=== PATIENT | male | born 1975 | race Caucasian/White ===

== ENCOUNTER 2016-08-25 18:03 | Emergency (ER) | payer OTHER ==
[2016-08-25 18:11] VITALS: TEMP 98.2
[2016-08-25] MEDS ORDERED: NS 1,000 ML IV ONE ×2 (18:19→19:13)
--- NOTE | 2016-08-25 18:33 | CPEKG ---
Heart Rate: 91 RR Interval: 659 P-R Interval: 136 QRSD Interval: 90 QT Interval: 376 QTC Interval: 463 P Tracy: 7 QRS Tracy: -17 T Wave Tracy: 12 EKG Severity - OTHERWISE NORMAL ECG - EKG Impression: SINUS RHYTHM EKG Impression: BORDERLINE LEFT AXIS DEVIATION Electronically Signed By: Kitty Dasilva 25-Aug-2016 20:48:31
[2016-08-25 18:58] LABS: % IMMATURE GRANULYOCYTES 0.2 % (0.0-1.1); ABSOLUTE IMMATURE GRANULOCYTES 0.01 10^3/uL (0.00-0.10); ADD DIFF? NO; ADD MORPH? NO; ADD SCAN? NO; ATYPICAL LYMPHOCYTE FLAG 0 (0-99); FRAGMENT RBC FLAG 0 (0-99); HEMATOCRIT 49.3 % (40.0-51.0); HEMOGLOBIN 17.3 g/dL (13.7-17.5); LEFT SHIFT FLG 0 (0-99); LIPEMIA HEMOLYSIS FLAG 90 (0-99); MEAN CELL HEMOGLOBIN 29.2 pg (27.9-34.1); MEAN CELL HEMOGLOBIN CONCENTR. 35.1 g/dL (32.4-36.7); MEAN CELL VOLUME 83.3 fL (81.5-99.8); MEAN PLATELET VOLUME 9.3 fL (8.7-11.7); PLATELET CLUMPS FLAG 0 (0-99); PLATELET COUNT 195 10^3/uL (150-400); RED BLOOD CELL COUNT 5.92 10^6/uL (4.40-6.38)
--- NOTE | 2016-08-25 19:08 | UCPHY ---
H & P Time Seen by Provider: 08/25/16 18:20 Patient Type: Established HPI/ROS: CHIEF COMPLAINT: Extremity cramping and tingling HISTORY OF PRESENT ILLNESS: 41-year-old male presents with extremity cramping and tingling. He recently was on an alcohol binge and drank 24 beers daily for 5 days. Yesterday, he started drinking and he began vomiting. At midnight last night, he awoke with a panicky feeling, associated with bilateral hand cramping and tingling of all of his extremities. He was unable sleep well last night because he kept waking up with cramping and tingling. Today the cramping has resolved, but he continues to have tingling of his upper extremities. He has been tolerating Pedialyte today. No nausea or vomiting now. REVIEW OF SYSTEMS: Constitutional: No fever, no chills Eyes: No visual changes ENT: No sore throat Respiratory: No cough, no shortness of breath Cardiac: No chest pain Gastrointestinal: no abdominal pain Genitourinary: No hematuria, no dysuria Musculoskeletal: No leg pain or swelling Skin: No rash Neurological: No headache Psychiatric: Anxiety Past Medical/Surgical History: Denies Social History: PCP: Dr. Gill Smoking Status: Never smoked Physical Exam: General Appearance: Alert, pleasant Eyes: Pupils equal and round, no conjunctival pallor ENT, Mouth: Mucous membranes moist Neck: Normal inspection Respiratory: Lungs are clear to auscultation Cardiovascular: Regular rate and rhythm Gastrointestinal: Abdomen is soft and nontender Neurological: A&O, nonfocal, no tremor, normal gait Skin: Warm and dry Extremities: normal inspection Psychiatric: Mood and affect normal Constitutional: Initial Vital Signs Temperature (C) 36.8 C 08/25/16 18:09 Heart Rate 100 08/25/16 18:09 Respiratory Rate 18 08/25/16 18:09 Blood Pressure 135/89 H 08/25/16 18:09 O2 Sat (%) 95 08/25/16 18:09 O2 Delivery Mode Room Air Allergies/Adverse Reactions: No Known Allergies Allergy (Verified 08/26/16 13:45) Home Medications: Medication Instructions Recorded LORazepam [Ativan] 1 mg PO Q6-8PRN PRN #10 tab 08/26/16 Medical Decision Making - Diagnostics EKG Interpretation: EKG interpreted by me reveals normal sinus rhythm, rate 91, no ST or T segment changes. ED Course/Re-evaluation: This patient presents with carpal pedal spasms, likely secondary to dehydration and possibly electrolyte abnormality. IV normal saline given for rehydration. CBC and Chem 7 ordered. Chem 7 reveals an anion gap. The laboratory here is unable to perform a venous pH or ABG. I suspect that the anion gap is secondary to dehydration or mild alcoholic ketoacidosis. The patient specifically denies use of methanol, ethylene glycol, aspirin, prescription meds. Tolerating oral fluids well. I will give him 2 L of normal saline and then recheck a Chem 7. Ativan 1 mg IV given for anxiety. Feels much better after 2 L of normal saline. Repeat Chem 7 is improved. He still has an anion gap of 19, but given that he is now asymptomatic, I feel that he is safe and stable for discharge and does not require further IV fluids. He is able to tolerate oral fluids and is aware that he should drink plenty of fluids. Repeat calcium is low, likely secondary to IV hydration. He will increase his calcium intake over the next few days. Differential Diagnosis: Differential diagnosis includes does not limited to hypokalemia, hypotension, metabolic acidosis secondary to methanol and ethylene glycol, aspirin overdose, uremia. - Data Points Laboratory Results: Laboratory Results 08/25/16 18:55 08/25/16 20:40 Medications Given: Discontinued Medications Sodium Chloride (Ns) 1,000 mls @ 0 mls/hr IV ONCE ONE PRN Reason: Wide Open Stop: 08/25/16 18:20 Last Admin: 08/25/16 18:32 Dose: 1,000 mls Sodium Chloride (Ns) 1,000 mls @ 0 mls/hr IV ONCE ONE PRN Reason: Wide Open Stop: 08/25/16 19:14 Last Admin: 08/25/16 19:17 Dose: 1,000 mls Lorazepam (Ativan Injection) 1 mg IVP EDNOW ONE Stop: 08/25/16 20:09 Last Admin: 08/25/16 20:19 Dose: 1 mg Departure - Departure Disposition: Home, Routine, Self-Care Clinical Impression: Carpopedal spasm, Dehydration Condition: Good Instructions: Dehydration (ED), Carpopedal Spasm (ED) Additional Instructions: Drink plenty of fluids. Take a multivitamin with calcium once daily. Return for worsening symptoms or any concerns. Referrals: NANDINI DENNY [Primary Care Provider] - As per Instructions - PQRS PQRS Measurement: N/A
[2016-08-25 19:10] LABS: ANION GAP 25 mEq/L (8-16); CALCIUM 9.1 mg/dL (8.5-10.4); CARBON DIOXIDE 23 mEq/l (22-31); CHLORIDE 100 mEq/L (97-110); CREATININE 0.7 mg/dL (0.7-1.3); GLOMERULAR FILTRATION RATE > 60; GLUCOSE 134 mg/dL (70-100); POTASSIUM 3.8 mEq/L (3.5-5.2); SODIUM 148 mEq/L (134-144)
[2016-08-25] MEDS ORDERED: LORazepam 2 MG/ML INJ IVP ONE (20:08)
[2016-08-25 20:57] LABS: ANION GAP 19 mEq/L (8-16); CALCIUM 7.7 mg/dL (8.5-10.4); CARBON DIOXIDE 23 mEq/l (22-31); CHLORIDE 105 mEq/L (97-110); CREATININE 0.7 mg/dL (0.7-1.3); GLOMERULAR FILTRATION RATE > 60; GLUCOSE 138 mg/dL (70-100); MAGNESIUM 1.8 mg/dL (1.6-2.3); SODIUM 147 mEq/L (134-144)
[2016-08-25 21:15] VITALS: RESP 16
[2016-08-25 21:41] VITALS: BP 122/89; PULSE 85; O2SAT 95
== END 2016-08-25 21:25 | disposition home or self-care (01) ==
LOC: CED 18:03
DX: R29.0 Tetany (principal); E86.0 Dehydration
CPT/HCPCS: 80048-PO; 83735-PO; 85025-PO; 96360-PO; 96361-PO; 96374-PO; G0463-PO; J2060

== ENCOUNTER 2016-08-26 13:26 | Emergency (ER) | payer OTHER ==
[2016-08-26 13:48] VITALS: RESP 16; TEMP 99
[2016-08-26] MEDS ORDERED: NS 1,000 ML IV ONE ×2 (14:07→14:30)
--- NOTE | 2016-08-26 14:30 | UCPHY ---
H & P Patient Type: Established Smoking Status: Never smoked Time Seen by Provider: 08/26/16 14:27 HPI/ROS: Chief complaint. Vomiting HPI. 41-year-old male seen last in night in the urgent care for vomiting and carpopedal spasm. He quit drinking 2 years ago but his daughter turn 3 this week and there was a lot of family at their house and so he had 3-4 beers each day plus shot for 3 days. Last drink was . Vomiting began yesterday and abdominal cramping. He also noted spasm of both hands especially when he was vomiting. He was treated last night with fluids and Ativan. His chemistry panel showed an anion gap. He denied drinking methanol or other alcohols. Some of his cramping today goes through to his back. No diarrhea. Decreased p.o. intake. He had hypertension when he was drinking but since he has not been drinking he and his physician of agreed that he does not probably need to take blood pressure medication. ROS Constitutional. no fever/chills, no weakness Eyes. no problems with vision ENT. no sore throat, no nasal drainage Cardiovascular. no chest pain Respiratory. no shortness of breath, no cough Abdominal. Abdominal pain with nausea vomiting . no problems urinating MS. Carpal pedal spasm of hands Skin. no rash Lymph. no swollen glands Neuro. no headache, no dizziness, no difficulty walking or with speech (Bandar Ann) Past Medical/Surgical History: Hypertension, anxiety (Bandar Ann) Social History: , nonsmoker, no alcohol for the last several days (Bandar Ann) Physical Exam: General Appearance: Alert well-developed male vital signs show heart rate 99 in blood pressure 158/113 Eyes: Pupils equal and round no pallor or injection. ENT, Mouth: Mucous membranes are moist. Respiratory: There are no retractions, lungs are clear to auscultation. Cardiovascular: Regular rate and rhythm. Gastrointestinal: Abdomen is soft with mild shan umbilical tenderness. No masses. Normal bowel sounds Neurological: Awake and alert, sensory and motor exams grossly normal. Skin: Warm and dry, no rashes. Musculoskeletal: Neck is supple nontender. Extremities symmetrical, full range of motion. Psychiatric: Patient is oriented X 3, there is no agitation. (Bandar Ann) Constitutional: Initial Vital Signs Temperature (C) 37.2 C 08/26/16 13:35 Heart Rate 99 08/26/16 13:35 Respiratory Rate 16 08/26/16 13:35 Blood Pressure 158/113 H 08/26/16 13:35 O2 Sat (%) 95 08/26/16 13:35 O2 Delivery Mode Room Air Allergies/Adverse Reactions: No Known Allergies Allergy (Verified 08/26/16 13:45) Home Medications: Medication Instructions Recorded LORazepam [Ativan] 1 mg PO Q6-8PRN PRN #10 tab 08/26/16 Medical Decision Making Procedures: IV normal saline with target of 2 L. Zofran and Ativan IV (Bandar Ann) ED Course/Re-evaluation: Re-evaluation at 3:30 p.m. patient is feeling much better. He has had 1 L of saline. He is taking oral fluids. Again denies any isopropyl or methanol. We will run the 2nd L of fluid in and let him continue to take oral fluids. We will then repeat Chem 7. If the anion gap is better he will be discharged encouraged to follow up with his regular physician (Bandar Ann) Repeat Chem 7 reveals resolution of the anion gap. Patient is treated with Reglan and Benadryl and another mg of Ativan for ongoing nausea with improvement thereafter. (Juan A Dia) Differential Diagnosis: Vomiting after alcohol. Denies is isopropyl or methanol. Elevated anion gap the last evening that improved with fluids. Elevated anion gap today after going home and vomiting. I assume it will improve again. (Bandar Ann) Care Turn Over: Dr. Dia at 3:45 p.m. (Bandar Ann) - Data Points Laboratory Results: Laboratory Results 08/26/16 14:05 08/26/16 17:55 08/26/16 08/26/16 08/26/16 17:55 14:05 14:05 WBC 6.98 10^3/uL 10^3/uL (3.80-9.50) RBC 5.80 10^6/uL 10^6/uL (4.40-6.38) Hgb 16.9 g/dL g/dL (13.7-17.5) Hct 48.8 % % (40.0-51.0) MCV 84.1 fL fL (81.5-99.8) MCH 29.1 pg pg (27.9-34.1) MCHC 34.6 g/dL g/dL (32.4-36.7) RDW 12.9 % % (11.5-15.2) Plt Count 184 10^3/uL 10^3/uL (150-400) MPV 9.6 fL fL (8.7-11.7) Neut % (Auto) 74.8 % H % (39.3-74.2) Lymph % (Auto) 20.1 % % (15.0-45.0) [place] % (Auto) 4.0 % L % (4.5-13.0) Eos % (Auto) 0.1 % L % (0.6-7.6) Baso % (Auto) 0.6 % % (0.3-1.7) Nucleat RBC Rel Count 0.0 % % (0.0-0.2) Absolute Neuts (auto) 5.22 10^3/uL 10^3/uL (1.70-6.50) Absolute Lymphs (auto) 1.40 10^3/uL 10^3/uL (1.00-3.00) Absolute Monos (auto) 0.28 10^3/uL L 10^3/uL (0.30-0.80) Absolute Eos (auto) 0.01 10^3/uL L 10^3/uL (0.03-0.40) Absolute Basos (auto) 0.04 10^3/uL 10^3/uL (0.02-0.10) Absolute Nucleated RBC 0.00 10^3/uL 10^3/uL (0-0.01) Immature Gran % 0.4 % % (0.0-1.1) Immature Gran # 0.03 10^3/uL 10^3/uL (0.00-0.10) Sodium 140 mEq/L mEq/L 141 mEq/L mEq/L (134-144) (134-144) Potassium 3.4 mEq/L L mEq/L 4.1 mEq/L mEq/L (3.5-5.2) (3.5-5.2) Chloride 104 mEq/L mEq/L 95 mEq/L L D mEq/L (97-110) (97-110) Carbon Dioxide 21 mEq/l L mEq/l 22 mEq/l mEq/l (22-31) (22-31) Anion Gap 15 mEq/L mEq/L 24 mEq/L H mEq/L (8-16) (8-16) BUN 6 mg/dL L mg/dL 7 mg/dL mg/dL (7-23) (7-23) Creatinine 0.5 mg/dL L mg/dL 0.7 mg/dL mg/dL (0.7-1.3) (0.7-1.3) Estimated GFR > 60 > 60 Glucose 88 mg/dL mg/dL 106 mg/dL H mg/dL (70-100) (70-100) Calcium 6.7 mg/dL L D mg/dL 8.9 mg/dL D mg/dL (8.5-10.4) (8.5-10.4) Lipase 67.0 IU/L IU/L (23-300) Medications Given: Discontinued Medications Diphenhydramine HCl (Benadryl Injection) 25 mg IVP EDNOW ONE Stop: 08/26/16 16:12 Last Admin: 08/26/16 16:20 Dose: 25 mg Sodium Chloride (Ns) 1,000 mls @ 0 mls/hr IV ONCE ONE PRN Reason: Wide Open Stop: 08/26/16 14:08 Last Admin: 08/26/16 14:07 Dose: 1,000 mls Sodium Chloride (Ns) 1,000 mls @ 0 mls/hr IV ONCE ONE PRN Reason: Wide Open Stop: 08/26/16 14:31 Last Admin: 08/26/16 15:38 Dose: 1,000 mls Lorazepam (Ativan Injection) 1 mg IVP EDNOW ONE Stop: 08/26/16 14:41 Last Admin: 08/26/16 15:20 Dose: 1 mg Lorazepam (Ativan Injection) 1 mg IVP EDNOW ONE Stop: 08/26/16 18:10 Last Admin: 08/26/16 18:20 Dose: 1 mg Metoclopramide HCl (Reglan Injection) 10 mg IVP EDNOW ONE Stop: 08/26/16 16:12 Last Admin: 08/26/16 16:22 Dose: 10 mg Ondansetron HCl (Zofran) 4 mg IVP EDNOW ONE Stop: 08/26/16 14:41 Last Admin: 08/26/16 15:18 Dose: 4 mg Departure - Departure Disposition: Home, Routine, Self-Care Clinical Impression: Dehydration Vomiting Qualifiers: Vomiting type: unspecified Vomiting Intractability: non-intractable Nausea presence: with nausea Qualified Code(s): R11.2 - Nausea with vomiting, unspecified Condition: Good Instructions: Acute Nausea and Vomiting (ED) Additional Instructions: Frequent, small sips fluids while nauseated. Gradual diet advancement. Ativan as needed for anxiety and spasm to hands. Zofran as needed for nausea vomiting. Return for worsening symptoms. Follow up with your regular physician in the next 2-3 days. If you do not have a regular physician I am giving you the name of on-call physician and please call her on Sunday morning to arrange follow-up and further evaluation Referrals: Jacy Ba MD [Medical Doctor] - 2-3 days without fail Prescriptions: LORazepam [Ativan] 1 mg PO Q6-8PRN PRN #10 tab PRN Reason: Anxiety - PQRS PQRS Measurement: 134: Depression screening and followup, PRIME MD-PHQ2 (12 years and older) Over the last 2 weeks, how often have you been bothered by any of the following problems? 1. Feeling down, depressed, or hopeless? 2. Little interest or pleasure in doing things? Patient answered no to both 1 and 2 130: Documentation of medications. Reviewed all patient medications, doses, route and frequency. 226: Do you smoke? No. (Bandar Ann)
[2016-08-26 14:39] LABS: % IMMATURE GRANULYOCYTES 0.4 % (0.0-1.1); ABSOLUTE IMMATURE GRANULOCYTES 0.03 10^3/uL (0.00-0.10); ADD DIFF? NO; ADD MORPH? NO; ADD SCAN? NO; ATYPICAL LYMPHOCYTE FLAG 0 (0-99); FRAGMENT RBC FLAG 0 (0-99); HEMATOCRIT 48.8 % (40.0-51.0); HEMOGLOBIN 16.9 g/dL (13.7-17.5); LEFT SHIFT FLG 0 (0-99); LIPEMIA HEMOLYSIS FLAG 90 (0-99); MEAN CELL HEMOGLOBIN 29.1 pg (27.9-34.1); MEAN CELL HEMOGLOBIN CONCENTR. 34.6 g/dL (32.4-36.7); MEAN CELL VOLUME 84.1 fL (81.5-99.8); MEAN PLATELET VOLUME 9.6 fL (8.7-11.7); PLATELET CLUMPS FLAG 0 (0-99); PLATELET COUNT 184 10^3/uL (150-400); RED CELL DISTRIBUTION WIDTH 12.9 % (11.5-15.2)
[2016-08-26] MEDS ORDERED: LORazepam 2 MG/ML INJ IVP ONE ×2 (14:40→18:09)
[2016-08-26] MEDS ORDERED: ONDANSETRON 4 MG/2 ML VIAL IVP ONE (14:40)
[2016-08-26 14:54] LABS: ANION GAP 24 mEq/L (8-16); CARBON DIOXIDE 22 mEq/l (22-31); CREATININE 0.7 mg/dL (0.7-1.3); GLOMERULAR FILTRATION RATE > 60; GLUCOSE 106 mg/dL (70-100); POTASSIUM 4.1 mEq/L (3.5-5.2); SODIUM 141 mEq/L (134-144)
[2016-08-26 15:10] LABS: CALCIUM 8.9 mg/dL (8.5-10.4); CHLORIDE 95 mEq/L (97-110)
[2016-08-26] MEDS ORDERED: METOCLOPRAMIDE 10 MG/2 ML VIAL IVP ONE (16:11)
[2016-08-26 18:18] LABS: ANION GAP 15 mEq/L (8-16); CARBON DIOXIDE 21 mEq/l (22-31); CHLORIDE 104 mEq/L (97-110); CREATININE 0.5 mg/dL (0.7-1.3); GLOMERULAR FILTRATION RATE > 60; GLUCOSE 88 mg/dL (70-100); POTASSIUM 3.4 mEq/L (3.5-5.2); SODIUM 140 mEq/L (134-144)
[2016-08-26 18:37] LABS: CALCIUM 6.7 mg/dL (8.5-10.4)
[2016-08-26] MEDS ORDERED: LORAZEPAM 1 MG PREPACK#4 BTL TAKEHOME ONE (19:19)
[2016-08-26 19:30] VITALS: BP 121/86; PULSE 88; O2SAT 96
== END 2016-08-26 19:25 | disposition home or self-care (01) ==
LOC: CED 13:26
DX: R11.2 Nausea with vomiting, unspecified (principal); I10 Essential (primary) hypertension; F41.9 Anxiety disorder, unspecified
CPT/HCPCS: 80048-PO; 83690-PO; 85025-PO; 96361-PO; 96374-PO; 96375-PO; 96376-PO; 99215-PO; G0463-PO; J1200; J2060; J2405; J2765